=== PATIENT | female | born 1935 | race Caucasian/White ===

== ENCOUNTER → 2020-05-06 | Outpatient (CLI) | payer MEDICARE ==
[~2020-05-06] MED LIST: ANTACID325 MG PO; REGADENOSON 0.4 MG/5 ML SYR IV ONE; TYLENOL500 MG PO; Z.0.CRESTOR5 MG PO; Z.0.HYDRALAZINE HCL5 PO; Z.0.LISINOPRIL10 MG PO; Z.0.OMEPRAZOLE20 M1 PO; Z.0.SIMVASTATIN20 MG PO; Z.0.TOPROL XL50 MG PO
--- NOTE | 2020-05-06 21:46 | Myoview Stress Test ---
DATE OF STUDY: 05/06/2020 09:44:00 Stress Test - Treadmill ONLY PROCEDURE TITLE: Rest/stress single isotope SPECT imaging with pharmacologic stress and gated SPECT imaging. INDICATION: Chest pain PROCEDURE IN DETAIL: Pharmacologic stress testing was performed with regadenoson per protocol. The heart rate was 82 beats at rest and increased to 100 beats per minute during the regadenoson infusion. The resting blood pressure is 119/81 mmHg and increased to 154/98 mmHg, which is a normal response. The resting electrocardiogram demonstrated normal sinus rhythm with occasional PVCs. There were no ST-segment changes suggestive of myocardial ischemia. Myocardial perfusion imaging was performed at rest following the injection of 11 mCi of tetrofosmin. At peak pharmacologic effect, the patient was injected 32.1 mCi of tetrofosmin. Gated post-stress tomographic imaging was performed. FINDINGS: The overall quality of the study is fair. The left ventricular cavity is noted to be of normal size on the rest and stress studies. SPECT images demonstrate homogeneous tracer distribution throughout the myocardium. Gated SPECT imaging reveals normal myocardial thickening and wall motion. The left ventricular ejection fraction was calculated to be greater than 70%. IMPRESSION: Myocardial perfusion imaging is normal. Overall, left ventricular systolic function was normal without regional wall motion abnormalities. Katrina Alatorre MD ABS/MODL /[id number]
== END ==
LOC: NM 09:20
PROVIDERS: ATTEND Internal Medicine Interventional Cardiology
DX: I20.8 Other forms of angina pectoris (principal); I10 Essential (primary) hypertension
CPT/HCPCS: 78452; 93017; 93306; A9502; J2785

== ENCOUNTER 2021-07-27 13:16 | Emergency (ER) | payer MEDICARE ==
[~2021-07-27] VITALS: Ht 157.5 cm; Wt 68.0 kg
[~2021-07-27 13:16] MED LIST changes: -REGADENOSON 0.4 MG/5 ML SYR IV ONE
[2021-07-27 14:06] LABS: BASOPHILS # (AUTO) 0.1 (0.0-0.1); EOSINOPHILS # (AUTO) 0.4 (0.0-0.4); EOSINOPHILS % 5.2 % (0.0-6.0); HEMATOCRIT 46.7 % (34.2-44.1); HEMOGLOBIN 14.9 g/dL (12.0-16.0); LYMPHOCYTES # (AUTO) 2.8 (1.0-3.2); LYMPHOCYTES % 33.2 % (18.0-39.1); MEAN CORPUSCULAR HEMOGLOBIN 28.8 pg (28-32); MEAN CORPUSCULAR HGB CONC 31.9 g/dL (31-35); MEAN CORPUSCULAR VOLUME 90.2 fL (81-99); MONOCYTES # (AUTO) 0.6 (0.2-0.8); MONOCYTES % 7.5 % (4.4-11.3); NEUTROPHILS # (AUTO) 4.4 (2.1-6.9); NEUTROPHILS % 52.6 % (38.7-80.0); PLATELET COUNT 305 x10e3/uL (140-360); RED BLOOD COUNT 5.18 x10e6/uL (3.6-5.1); RED CELL DISTRIBUTION WIDTH 16.3 % (11.7-14.4)
[2021-07-27 14:15] LABS: INR 0.86; PROTHROMBIN TIME 12.4 seconds (11.9-14.5)
[2021-07-27 14:25] LABS: ALBUMIN 3.5 g/dL (3.5-5.0); ALBUMIN/GLOBULIN RATIO 0.9 (0.8-2.0); ANION GAP 17.8 mmol/L (8-16); CREATININE, SERUM 1.02 mg/dL (0.57-1.11); POTASSIUM 3.8 mmol/L (3.5-5.1)
[2021-07-27 14:32] LABS: CREATINE KINASE MB 1.1 ng/mL (0-5.0)
[2021-07-27 14:59] LABS: CLARITY,URINE CLOUDY (CLEAR); COLOR,URINE AMBER (YELLOW); KETONES,URINE 1+ (NEGATIVE); LEUKOCYTE ESTERASE ,URINE NEGATIVE (NEGATIVE); NITRITE,URINE NEGATIVE (NEGATIVE); PROTEIN,URINE DIPSTICK 2+ (NEGATIVE)
[2021-07-27 15:00] LABS: URINE UROBILINOGEN 0.2 mg/dL (0.2 - 1)
[2021-07-27 15:14] LABS: BACTERIA,URINE FEW /HPF; EPITHELIAL CELLS,URINE MANY /LPF
== END 2021-07-27 16:39 | disposition home or self-care (01) ==
LOC: ER 13:20
DX: F03.90 Unspecified dementia, unspecified severity, without behavioral disturbance, psychotic disturbance, mood disturbance, and anxiety (principal)
CPT/HCPCS: 36415; 70450; 71045; 80053; 81001; 82550; 82553; 83880; 84484; 85025; 85610; 85730; 93005; 99283